=== PATIENT | male | born 2000 ===

== ENCOUNTER → 2024-05-25 08:47 | Outpatient (CLI) | payer OTHER, SELFPAY ==
--- NOTE | 2024-05-25 08:50 | DI.MRI.S_ITS ---
PROCEDURE: MR SHOULDER RT WO CON INDICATIONS: RIGHT SHOULDER PAIN TECHNIQUE: Noncontrast oblique coronal T2 fast spin echo with fat saturation, oblique sagittal T1 spin echo and T2 fast spin echo with fat saturation, axial T1 spin echo and T2 fast spin echo with fat saturation through the shoulder. COMPARISON: None. FINDINGS: Image quality: Excellent. Rotator cuff: Mild tendinosis at the junction of supraspinatus and infraspinatus, without tear. The teres minor is unremarkable. The subscapularis is unremarkable. No muscle edema or fatty atrophy. Bones and bursae: Marked marrow edema of the distal clavicle without fracture line, concerning for marrow contusion. The superior acromioclavicular ligament is thickened, representing prior sprain. The inferior acromioclavicular ligament is not visualized, concerning for full-thickness tear. Type 1 acromion. Os acromiale versus unfused acromial apophysis. No significant subacromial/subdeltoid bursitis. Marrow signal of the proximal humerus is unremarkable. No focal chondral defect of the glenohumeral joint. Capsule and soft tissues: Tear of the anterior superior labrum. The extra-articular biceps tendon is unremarkable. Mild tendinosis of the intra-articular biceps tendon. No significant glenohumeral effusion. Mild subcoracoid bursitis. IMPRESSION: 1. Marked marrow edema the distal clavicle without fracture line, concerning for marrow contusion. Tear of the inferior acromioclavicular ligament. 2. Os acromiale versus unfused acromial apophysis. 3. Mild tendinosis at the junction of the supraspinatus and infraspinatus. 4. Tear of the anterior superior labrum. 5. Mild tendinosis of the intra-articular biceps tendon. Dictated by: Sasha Huntley M.D. on 05/25/2024 at 16:16 Approved by: Sasha Huntley M.D. on 05/25/2024 at 16:31
== END ==
PROVIDERS: Referring Provider Nurse Practitioner Family; Visit Provider Nurse Practitioner Family
DX: S43.431A Superior glenoid labrum lesion of right shoulder, initial encounter (principal); M25.511 Pain in right shoulder
CPT/HCPCS: 73221